=== PATIENT | female | born 1935 | race American Indian/Alaskan Native ===

== ENCOUNTER 2017-09-09 16:22 | Inpatient (IN) | payer MEDICARE, OTHER ==
--- NOTE | 2017-09-09 17:54 | C.PDOC ---
History Of Present Illness <Stephanie Brooke - Last Filed: 09/09/17 18:36> <PurvisKorey Franklin - Last Filed: 09/09/17 22:16> 82 y/o female brought in by family for evaluation of new-onset bilateral leg swelling for the past 4 days. Swelling is described as intermittent, and currently has improved spontaneously compared to 4 days ago. Otherwise patient has no leg pain, and denies taking any diuretics. Denies associated dyspnea on exertion, SOB, or chest pain. Patient has also complained of worsening difficulty walking and bilateral leg weakness for the past 4-5 months. As per family, patient used to walk without assistance. Now she is unable to get up from sitting, and feels as if legs will give out. Denies any paresthesias or pain. Family also notes persistent, foul-smelling urine for 1 month. Urine is unchanged from the past month, with no improvement after taking AZO. Family denies associated fever, frequency, pelvic pain, nausea, or vomiting. Patient tried to see PMD today but was advised to come to the ER. (EdwardoStephanie) History Per: Family History/Exam Limitations: no limitations Onset/Duration Of Symptoms: Days Current Symptoms Are (Timing): Still Present Additional History Per: Patient (poor historian) <Stephanie Brooke - Last Filed: 09/09/17 18:36> <Kroey Purvis - Last Filed: 09/09/17 22:16> Time Seen by Provider: 09/09/17 17:44 Chief Complaint (Nursing): Lower Extremity Problem/Injury Past Medical History Reviewed: Historical Data, Nursing Documentation, Vital Signs - Medical History PMH: Diabetes, HTN, Malignancy (Right breast CA) Other Surgeries: Right breast mastectomy Family History: States: No Known Family Hx - Social History Hx Tobacco Use: No Hx Alcohol Use: No Hx Substance Use: No <Stephanie Brooke - Last Filed: 09/09/17 18:36> Vital Signs: Last Vital Signs Temp 99.5 F 09/09/17 16:39 Pulse 83 09/09/17 16:39 Resp 16 09/09/17 16:39 BP 146/88 09/09/17 16:39 Pulse Ox 96 09/09/17 18:37 - [facility] Procedures BREAST DX PROCEDURE NEC (11/01/03) LOCAL EXCIS BREAST LES (11/01/03) PERCUTAN NEEDLE BIOPSY OF BREAST (09/25/03) Review Of Systems Except As Marked, All Systems Reviewed And Found Negative. Constitutional: Negative for: Fever Cardiovascular: Negative for: Chest Pain Respiratory: Negative for: Shortness of Breath, SOB with Excertion Gastrointestinal: Negative for: Nausea, Vomiting Genitourinary: Positive for: Other (Foul-smelling urine). Negative for: Frequency, Incontinence, Pelvic Pain Musculoskeletal: Positive for: Other (Bilateral leg swelling). Negative for: Leg Pain Neurological: Positive for: Weakness (bilateral legs). Negative for: Numbness ( or paresthesias) <Stephanie Brooke - Last Filed: 09/09/17 18:36> Physical Exam - Physical Exam Appears: Non-toxic, No Acute Distress Skin: Normal Color, Warm, Dry Head: Atraumatic, Normacephalic Eye(s): bilateral: Normal Inspection, PERRL, EOMI Oral Mucosa: Moist Neck: Normal ROM, Supple Chest: Symmetrical Cardiovascular: Rhythm Regular, No Murmur Respiratory: Normal Breath Sounds, No Rales, No Rhonchi, No Wheezing, Other ( NARD) Gastrointestinal/Abdominal: Soft, No Tenderness, No Distention Extremity: Normal ROM, No Tenderness, Capillary Refill (less than 2sec), Swelling (+1 edema to bilateral legs) Pulses: Left Dorsalis Pedis: Normal, Right Dorsalis Pedis: Normal Neurological/Psych: Oriented x3 <Stephanie Brooke Last Filed: 09/09/17 18:36> ED Course And Treatment - Laboratory Results Result Diagrams: 09/09/17 18:14 O2 Sat by Pulse Oximetry: 96 (RA) Pulse Ox Interpretation: Normal <Stephanie Brooke - Last Filed: 09/09/17 18:36> - Laboratory Results Result Diagrams: 09/09/17 18:14 09/09/17 18:14 <Korey Purvis - Last Filed: 09/09/17 22:16> Progress - Data Reviewed Data Reviewed: Lab, Diagnostic imaging, EKG, Old records <Stephanie Brooke - Last Filed: 09/09/17 18:36> <Korey Purvis - Last Filed: 09/09/17 22:16> - Re-Evaluation Re-evaluation Note: 09/09/17 18:07 D/W DR Lashanda GRANADOS AWARE OF ER FINDINGS. CALLBACK W RESULTS FOR DISPO (Stephanie Brooke) Medical Decision Making <Stephanie Brooke - Last Filed: 09/09/17 18:36> <Korey Purvis - Last Filed: 09/09/17 22:16> Medical Decision Making: Impression: 82 year old female with bilateral leg swelling, difficulty walking, foul urine Initial Plan: --EKG --Pro-BNP --CMP --CBC --Chest X-Ray --Blood culture --Urine culture --Urinalysis (Stephanie Brooke) Disposition - Disposition Disposition Time: 19:00 <Stephanie Brooke - Last Filed: 09/09/17 18:36> Discussed With : Ranjeet Granados Doctor Will See Patient In The: Hospital Counseled Patient/Family Regarding: Diagnosis - Disposition Disposition Time: 22:16 - POA Present On Arrival: None <Korey Purvis - Last Filed: 09/09/17 22:16> - Disposition Disposition: HOSPITALIZED Condition: STABLE Forms: [employer] (Irish) - Clinical Impression Clinical Impression: Normal pressure hydrocephalus, Meningioma, Unsteadiness - Scribe Statement The provider has reviewed the documentation as recorded by the Scribe (Rosey Aguila) <Stephanie Brooke - Last Filed: 09/09/17 18:36> <Korey Purvis - Last Filed: 09/09/17 22:16> - Scribe Statement Provider Attestation: All medical record entries made by the Scribe were at my direction and personally dictated by me. I have reviewed the chart and agree that the record accurately reflects my personal performance of the history, physical exam, medical decision making, and the department course for this patient. I have also personally directed, reviewed, and agree with the discharge instructions and disposition. (EdwardoStephanie) Physician Patient Turnover Patient Signed Over To: Korey Purvis Handoff Comments: [facility], BEBA, D/W PMD <Stephanie Brooke - Last Filed: 09/09/17 18:36>
[2017-09-09 18:22] LABS: BASO % 0.2 % (0.0-2.0); EOS % 0.2 % (0.0-4.0); HEMOGLOBIN 16.2 g/dL (11.0-16.0); LYMPH # 1.8 K/uL (1.0-4.3); LYMPH % 19.4 % (20.0-40.0); MEAN CELL VOLUME 85.5 fL (81.0-99.0); MEAN CORPUSCULAR HEMOGLOBIN 28.8 pg (27.0-31.0); MEAN CORPUSCULAR HGB CONC 33.7 g/dL (33.0-37.0); MEAN PLATELET VOLUME 8.2 fL (7.2-11.7); MONO # 0.6 K/uL (0.0-0.8); MONO % 6.1 % (0.0-10.0); NEUT % 74.1 % (50.0-75.0); NRBC % 0.1 % (0.0-2.0); RBC 5.64 Mil/uL (3.80-5.20); RED CELL DISTRIBUTION WIDTH 14.5 % (11.5-14.5); WHITE BLOOD COUNT 9.4 K/uL (4.8-10.8)
[2017-09-09 18:38] LABS: ALB/GLOB RATIO 1.2 (1.0-2.1); ALBUMIN 4.8 g/dL (3.5-5.0); ALT/SGPT 26 U/L (9-52); AST/SGOT 23 U/L (14-36); BLOOD UREA NITROGEN 12 mg/dL (7-17); CALCIUM 11.2 mg/dl (8.6-10.4); GFR AFRICAN-AMERICAN > 60; GFR NON-AFRICAN AMERICAN > 60
[2017-09-09 18:46] LABS: B-TYPE NATRIURETIC PEPTIDE 74.3 pg/mL (0-900)
[2017-09-09] MEDS ORDERED: Sodium Chloride 0.9% 1,000 ML IV ONE (19:51)
[2017-09-09 20:03] LABS: SQUAMOUS EPITHIAL < 1 /hpf (0-5); URINE BACTERIA RARE (<OCC); URINE BILIRUBIN NEGATIVE (NEGATIVE); URINE BLOOD NEGATIVE (NEGATIVE); URINE CLARITY Clear (Clear); URINE COLOR Yellow (YELLOW); URINE GLUCOSE (UA) 3+ mg/dL (Normal); URINE LEUKOCYTE ESTERASE NEG Leu/uL (Negative); URINE PROTEIN NEGATIVE (NEGATIVE); URINE UROBILINOGEN NORMAL mg/dL (0.2-1.0)
--- NOTE | 2017-09-10 08:13 | RAD ---
Date of service: 09/09/2017 PROCEDURE: CHEST RADIOGRAPH, 1 VIEW HISTORY: MED CLEAR COMPARISON: None available. FINDINGS: LUNGS: The lungs are well inflated and clear. PLEURA: No pneumothorax or pleural fluid seen. CARDIOVASCULAR: Normal. OSSEOUS STRUCTURES: No significant abnormalities. VISUALIZED UPPER ABDOMEN: Normal. OTHER FINDINGS: None. IMPRESSION: No active pulmonary disease.
--- NOTE | 2017-09-10 08:45 | CT ---
Date of service: 09/09/2017 PROCEDURE: CT HEAD WITHOUT CONTRAST. HISTORY: unsteadiness/ feels like falling COMPARISON: CT head 05/25/2013 and MRI brain 08/14/2013 TECHNIQUE: Axial computed tomography images were obtained through the head/brain without intravenous contrast. Radiation dose: Total exam DLP = 899.85 mGy-cm. This CT exam was performed using one or more of the following dose reduction techniques: Automated exposure control, adjustment of the mA and/or kV according to patient size, and/or use of iterative reconstruction technique. FINDINGS: HEMORRHAGE: No intracranial hemorrhage. BRAIN: No mass effect or edema. Minimal atrophy. Left parasagittal fall seen meningioma as demonstrated on prior MRI of 08/14/2013 without interval change. This measures approximately 1.3 cm in greatest dimension. There is a component extending along the right parasagittal falx as well which does not enhance on prior MR examination. VENTRICLES: Persistent mild ventriculomegaly disproportionate to the degree of surrounding parenchymal atrophy. 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 Mild to moderate chronic periventricular white matter ischemic change with patchy and confluent deep/ subcortical white matter ischemic change. No change from prior examination. No evidence of acute infarct. CALVARIUM: Unremarkable. PARANASAL SINUSES: Unremarkable as visualized. No significant inflammatory changes. MASTOID AIR CELLS: Unremarkable as visualized. No inflammatory changes. OTHER FINDINGS: None. 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 Chronic white matter ischemic change. No intracranial hemorrhage or evidence of acute infarct. Stable left parasagittal anterior falcine meningioma. The preliminary findings for this examination were reported by [employer] at 9:14 p.m. on 09/09/2017. There is concurrence of this report with the preliminary findings.
[2017-09-10] MEDS: Enoxaparin 40 mg Syringe SC SCH (09:25)
[2017-09-10] MEDS ORDERED: METFORMIN HCL 500 MG PO SCH (10:00)
[2017-09-10 11:51] LABS: BASO % 0.5 % (0.0-2.0); EOS # 0.1 K/uL (0.0-0.7); EOS % 0.6 % (0.0-4.0); HEMOGLOBIN 15.2 g/dL (11.0-16.0); LYMPH % 22.2 % (20.0-40.0); MEAN CELL VOLUME 85.7 fL (81.0-99.0); MEAN CORPUSCULAR HGB CONC 33.9 g/dL (33.0-37.0); MEAN PLATELET VOLUME 8.2 fL (7.2-11.7); MONO # 0.6 K/uL (0.0-0.8); MONO % 6.4 % (0.0-10.0); NEUT # 6.4 K/uL (1.8-7.0); NEUT % 70.3 % (50.0-75.0); NRBC % 0.1 % (0.0-2.0); RBC 5.23 Mil/uL (3.80-5.20); RED CELL DISTRIBUTION WIDTH 14.6 % (11.5-14.5)
[2017-09-10 12:18] LABS: ALB/GLOB RATIO 1.4 (1.0-2.1); ALBUMIN 4.2 g/dL (3.5-5.0); ALT/SGPT 18 U/L (9-52); AST/SGOT 21 U/L (14-36); BLOOD UREA NITROGEN 9 mg/dL (7-17); CALCIUM 10.5 mg/dl (8.6-10.4); GFR AFRICAN-AMERICAN > 60; GFR NON-AFRICAN AMERICAN > 60
--- NOTE | 2017-09-10 16:44 | MRI ---
Date of service: 09/10/2017 PROCEDURE: MRI BRAIN WITHOUT CONTRAST HISTORY: Ataxia COMPARISON: Noncontrast head CT from 09/09/2017 TECHNIQUE: Multiplanar, multisequence MR images of the brain were obtained without intravenous contrast enhancement. FINDINGS: HEMORRHAGE: None DWI: No evidence of an acute or early subacute infarction. BRAIN PARENCHYMA: There are moderate chronic microangiopathic changes. There is no mass, mass effect or abnormal extra-axial fluid collection. There is no territorial infarction. VENTRICLES: There is moderate age-related global parenchymal volume loss with proportionate enlargement of the ventricles and cortical sulci. There is a cavum septum pellucidum. The ventricular dilatation is out of proportion to the sulcal prominence. CRANIUM: There is normal bone marrow signal pattern. ORBITS: Grossly unremarkable. PARANASAL SINUSES/MASTOIDS: Predominantly clear. VASCULAR SYSTEM: There are normal signal voids in the larger intracranial arteries. OTHER FINDINGS: None. IMPRESSION: No acute intracranial abnormality. Moderate chronic microangiopathic changes. Moderate age-related global parenchymal volume loss. Ventricular dilatation is out of prominence to the sulcal prominence for age-related volume loss, normal pressure hydrocephalus is a consideration. Clinical follow-up is advised.
--- NOTE | 2017-09-10 17:11 | CP.PCM.HP ---
History of Present Illness - History of Present Illness History of Present Illness: HPI: Ms. Silviano Álvarez is an 82-year-old [place]ian female who has long-term history of diabetes hypertension, hyperlipidemia. Her adoptive daughter came to the office yesterday requesting antibiotics for her mother because she had developed edema of both lower extremities as well as various foul-smelling urine. They had bought some AZO and thought that it might be a urinary tract infection causing the edema. More importantly Ms. Álvarez's son recently and she had not been herself. Although I suspect that there may be some psychosocial issues in the picture, Ms. Álvarez and he had not been ambulating much over the last 6 to 12 months that I have seen. For you when you and he has also been in the high 9s and 10s. Patient admits to being unsteady on her feet and feels that she is going to fall. Patient has a rolling walker but refuses to use it especially in public. Hence the lower extremities have gotten thinner over time while she put on weight. The patient's sister, in her later years suffered from dementia Alzheimer's type. Patient also seems a lot more forgetful, and together with her behavioral changes may herald the same illness that struck her sister. In the meantime patient is unable to care for herself and with the findings of a meningioma, bereavement and adjustment issues secondary to her son's , some short-term immediate help. Present on Admission - Present on Admission Any Indicators Present on Admission: No History of DVT/PE: No History of Uncontrolled Diabetes: Yes Urinary Catheter: No Decubitus Ulcer Present: No Review of Systems - Review of Systems Systems not reviewed;Unavailable: Altered Mental Status - Constitutional Constitutional: Frequent Falls (not frequent, but had almost fallen) - EENT Eyes: Decreased Night Vision Ears: Decreased Hearing Nose/Mouth/Throat: absent: As Per HPI, Epistaxis, Nasal Congestion, Nasal Discharge, Nasal Obstruction, Nasal Trauma, Nose Pain, Post Nasal Drip, Sinus Pain, Sinus Pressure, Bleeding Gums, Change in Voice, Dental Pain, Dry Mouth, Dysphagia, Halitosis, Hoarsness, Lip Swelling, Mouth Lesions, Mouth Pain, Odynophagia, Sore Throat, Throat Swelling, Tongue Swelling, Facial Pain, Neck Pain, Neck Mass, Other - Breasts Breasts: absent: As Per HPI, Change in Shape, Mass, Pain, Nipple Discharge, Nipple Inversion, Skin Changes, Swelling, Other - Cardiovascular Cardiovascular: absent: As Per HPI, Acrocyanosis, Chest Pain, Chest Pain at Rest , Chest Pain with Activity, Claudication, Diaphoresis, Dyspnea, Dyspnea on Exertion, Edema, Irregular Heart Rhythm, Pain Radiating to Arm/Neck/Jaw, Leg Edema, Leg Ulcers, Lightheadedness, Orthopnea, Palpitations, Paroxysmal Nocturnal Dyspnea, Pedal Edema, Radiating Pain, Rapid Heart Rate, Slow Heart Rate, Syncope, Other - Respiratory Respiratory: Other Additional comments: gets short of breath easily - Gastrointestinal Gastrointestinal: absent: As Per HPI, Abdominal Pain, Belching, Bloating, Change in Bowel Habits, Change in Stool Character, Coffee Ground Emesis, Constipation, Cramping, Diarrhea, Dyspepsia, Dysphagia, Early Satiety, Excessive Flatus, Fecal Incontinence, Heartburn, Hematemesis, Hematochezia, Loose Stools, Melena, Nausea, Odynophagia, Temesmus, Vomiting, Other - Genitourinary Genitourinary: absent: As Per HPI, Change in Urinary Stream, Difficulty Urinating, Dysuria, Flank Pain, Hematuria, Pyuria, Nocturia, Urinary Incontinence, Urinary Frequency, Urinary Hesitance, Urinary Urgency, Voiding Freq/Small Amts, Freq UTI, Hx Renal/Bladder Calculi, Hx /Renal Surgery, Bladder Distension, Other - Reproductive: Female Reproductive:Female: absent: As Per HPI, Amenorrhea, Amenorrhea/ Control, Currently Menstual, Cycle <21 Days, Cycle >35 Days, Cycle Variable, Menses 1-7 Days, Menses >/= 8 Days, Menses Variable, Cycle > 4 Weeks Between, No Menses for 6 Months, Heavy Menses, Light Menses, Normal Menses, Spotting Between Cycles , S/P Hysterectomy, Menopausal, Post Menopausal, Premenarche, Abnormal Vaginal Bleeding, Dysmenorrhea, Dyspareunia, Genital Lesions, Genital Pruritis, Pelvic Pain, Prolapse Symptoms, Sexual Dysfunction, Vaginal Discharge, Vaginal Dryness , Vaginal Odor, Vaginal Pruritis, Other - Menstruation Additional comments: post menopausal - Musculoskeletal Musculoskeletal: Muscle Weakness - Integumentary Integumentary: absent: As Per HPI, Acne, Alopecia, Bleeding Lesions, Change in Hair, Change in Nails, Change in Pigmentation, Changing Lesions, Dry Skin, Erythema, Furuncle, Hirsutism, Lesions, New Lesions, Non-Healing Lesions, Photosensitivity, Pruritus, Rash, Skin Pain, Skin Ulcer, Sores, Striae, Swelling , Unusual Bruising, Wounds, Jaundice, Other - Psychiatric Psychiatric: Difficulty Concentrating, Memory Loss - Endocrine Endocrine: Fatigue, Polydipsia, Polyphagia - Hematologic/Lymphatic Hematologic: absent: As Per HPI, Easy Bleeding, Easy Bruising, Lymphadenopathy, Other Past Patient History - Past Medical History & Family History Past Medical History?: Yes - Past Social History Smoking Status: Unknown If Ever Smoked - CARDIAC Hx Hypertension: Yes - PULMONARY Hx Respiratory Disorders: No - NEUROLOGICAL Hx Neurological Disorder: No - HEENT Hx HEENT Problems: No - RENAL Hx Chronic Kidney Disease: No - ENDOCRINE/METABOLIC Hx Diabetes Mellitus Type 2: Yes - HEMATOLOGICAL/ONCOLOGICAL Hx Cancer: Yes (RIGHT BREAST, MASTECTOMY) - INTEGUMENTARY Hx Dermatological Problems: No - MUSCULOSKELETAL/RHEUMATOLOGICAL Hx Musculoskeletal Disorders: No Hx Falls: No - GASTROINTESTINAL Hx Gastrointestinal Disorders: No - GENITOURINARY/GYNECOLOGICAL Hx Genitourinary Disorders: No - PSYCHIATRIC Hx Psychophysiologic Disorder: No Hx Substance Use: No - SURGICAL HISTORY Hx Surgeries: Yes Hx Mastectomy: Yes (RIGHT) Other/Comment: right mastectomy - ANESTHESIA Hx Anesthesia: Yes Hx Anesthesia Reactions: No Hx Malignant Hyperthermia: No Has any member of the family had a problem w/ anesthesia?: No Meds Home Medications: Home Medication List Medication Instructions Recorded Confirmed Type Docusate [Colace] 100 mg PO TID cap 09/13/17 Rx Enoxaparin [Lovenox] 40 mg SC DAILY syr 09/13/17 Rx GlipiZIDE [Glucotrol] 5 mg PO ACL tab 09/13/17 Rx Lisinopril [Zestril] 10 mg PO DAILY 30 Days #30 tab MDD 09/13/17 Rx 40 Phosphate Enema [Fleet Enema] 135 ml MI ONCE nma 09/13/17 Rx hydroCHLOROthiazide [Microzide] 12.5 mg PO DAILY cap 09/13/17 Rx Allergies/Adverse Reactions: Allergies Allergy/AdvReac Type Severity Reaction Status Date / Time aspirin Allergy Verified 09/09/17 16:43 Physical Exam - Constitutional Appears: No Acute Distress - Head Exam Head Exam: NORMAL INSPECTION, NORMOCEPHALIC - Eye Exam Eye Exam: Normal appearance Pupil Exam: NORMAL ACCOMODATION - ENT Exam ENT Exam: Mucous Membranes Moist, Normal Exam - Neck Exam Neck exam: Positive for: Normal Inspection - Respiratory Exam Respiratory Exam: Decreased Breath Sounds - Cardiovascular Exam Cardiovascular Exam: REGULAR RHYTHM - GI/Abdominal Exam GI & Abdominal Exam: Normal Bowel Sounds - Rectal Exam Rectal Exam: Deferred - Extremities Exam Extremities exam: Positive for: pedal edema - Back Exam Back exam: NORMAL INSPECTION - Psychiatric Exam Psychiatric exam: Flat Affect - Skin Skin Exam: Intact, Normal Color, Warm Results - Vital Signs Recent Vital Signs: Last Vital Signs Temp 98.5 F 09/10/17 15:10 Pulse 83 09/10/17 15:10 Resp 20 09/10/17 15:10 BP 140/88 09/10/17 15:10 Pulse Ox 96 09/10/17 15:10 - Labs Result Diagrams: 09/13/17 07:21 09/13/17 07:21 Labs: Laboratory Results - last 24 hr 09/09/17 09/09/17 09/09/17 18:14 18:14 19:57 WBC 9.4 RBC 5.64 H Hgb 16.2 H Hct 48.2 H MCV 85.5 MCH 28.8 MCHC 33.7 RDW 14.5 Plt Count 315 MPV 8.2 Neut % (Auto) 74.1 Lymph % (Auto) 19.4 L [place] % (Auto) 6.1 Eos % (Auto) 0.2 Baso % (Auto) 0.2 Neut # (Auto) 7.0 Lymph # (Auto) 1.8 [place] # (Auto) 0.6 Eos # (Auto) 0.0 Baso # (Auto) 0.0 Sodium 138 Potassium 4.4 Chloride 99 Carbon Dioxide 27 Anion Gap 15 BUN 12 Creatinine 0.8 Est GFR ( Amer) > 60 Est GFR (Non-Af Amer) > 60 POC Glucose (mg/dL) Random Glucose 276 H Calcium 11.2 H Total Bilirubin 0.5 AST 23 ALT 26 Alkaline Phosphatase 152 H NT-Pro-B Natriuret Pep 74.3 Total Protein 8.7 H Albumin 4.8 Globulin 3.9 Albumin/Globulin Ratio 1.2 Urine Color Yellow Urine Clarity Clear Urine pH 6.0 Ur Specific [place] 1.009 Urine Protein Negative Urine Glucose (UA) 3+ H Urine Ketones Negative Urine Blood Negative Urine Nitrate Negative Urine Bilirubin Negative Urine Urobilinogen Normal Ur Leukocyte Esterase Neg Urine WBC (Auto) 2 Ur Squamous Epith Cells < 1 Urine Bacteria Rare 09/10/17 09/10/17 09/10/17 07:10 11:05 11:46 WBC 9.0 RBC 5.23 H Hgb 15.2 Hct 44.8 MCV 85.7 MCH 29.0 MCHC 33.9 RDW 14.6 H Plt Count 310 MPV 8.2 Neut % (Auto) 70.3 Lymph % (Auto) 22.2 [place] % (Auto) 6.4 Eos % (Auto) 0.6 Baso % (Auto) 0.5 Neut # (Auto) 6.4 Lymph # (Auto) 2.0 [place] # (Auto) 0.6 Eos # (Auto) 0.1 Baso # (Auto) 0.0 Sodium Potassium Chloride Carbon Dioxide Anion Gap BUN Creatinine Est GFR ( Amer) Est GFR (Non-Af Amer) POC Glucose (mg/dL) 214 H 294 H Random Glucose Calcium Total Bilirubin AST ALT Alkaline Phosphatase NT-Pro-B Natriuret Pep Total Protein Albumin Globulin Albumin/Globulin Ratio Urine Color Urine Clarity Urine pH Ur Specific [place] Urine Protein Urine Glucose (UA) Urine Ketones Urine Blood Urine Nitrate Urine Bilirubin Urine Urobilinogen Ur Leukocyte Esterase Urine WBC (Auto) Ur Squamous Epith Cells Urine Bacteria 09/10/17 11:46 WBC RBC Hgb Hct MCV MCH MCHC RDW Plt Count MPV Neut % (Auto) Lymph % (Auto) [place] % (Auto) Eos % (Auto) Baso % (Auto) Neut # (Auto) Lymph # (Auto) [place] # (Auto) Eos # (Auto) Baso # (Auto) Sodium 139 Potassium 4.2 Chloride 101 Carbon Dioxide 23 Anion Gap 19 BUN 9 Creatinine 0.5 L Est GFR ( Amer) > 60 Est GFR (Non-Af Amer) > 60 POC Glucose (mg/dL) Random Glucose 270 H Calcium 10.5 H Total Bilirubin 0.7 AST 21 ALT 18 Alkaline Phosphatase 104 NT-Pro-B Natriuret Pep Total Protein 7.3 Albumin 4.2 Globulin 3.1 Albumin/Globulin Ratio 1.4 Urine Color Urine Clarity Urine pH Ur Specific [place] Urine Protein Urine Glucose (UA) Urine Ketones Urine Blood Urine Nitrate Urine Bilirubin Urine Urobilinogen Ur Leukocyte Esterase Urine WBC (Auto) Ur Squamous Epith Cells Urine Bacteria Assessment & Plan (1) Unsteady gait Assessment and Plan: evaluate for any organic cause, delfino a subacute CVA. start with CT Head Status: Acute (2) UTI (urinary tract infection) Assessment and Plan: repeat UA Status: Acute (3) Intracranial space-occupying lesion Assessment and Plan: meningioma. consult neurology and see if symptomatic and needing treatment Status: Acute (4) Diabetes mellitus Assessment and Plan: uncontrolled and determine cause, unless only uncontrolled eating Status: Acute (5) Hypertension Assessment and Plan: elevated, needs meds adjustment Status: Acute Decision To Admit - Pt Status Changed To: Hospital Disposition Of: Inpatient - Admit Certification Admit to Inpatient:: After my assessment, the patient will require hospitalization for at least two midnights. This is because of the severity of symptoms shown, intensity of services needed, and/or the medical risk in this patient being treated as an outpatient. - InPatient: Physician Admission Certification:: After my assessment, the patient will require hospitalization for at least two midnights. This is because of the severity of symptoms shown, intensity of services needed, and/or the medical risk in this patient being treated as an outpatient. - . Bed Request Type: Telemetry
--- NOTE | 2017-09-10 20:45 | CP.PCM.PN ---
Subjective - Date & Time of Evaluation Date of Evaluation: 09/10/17 Time of Evaluation: 20:44 - Subjective Subjective: Pt in bed and communicates well. Denies any symptoms of hydrocephalus. Explained to pt what it is and associated symptoms.... Objective - Vital Signs/Intake and Output Vital Signs (last 24 hours): Temp Pulse Resp BP Pulse Ox 98.5 F 83 20 140/88 96 09/10/17 15:10 09/10/17 15:10 09/10/17 15:10 09/10/17 15:10 09/10/17 15:10 - Medications Medications: Current Medications Amlodipine Besylate (Norvasc) 5 mg PO DAILY [facility] Last Admin: 09/10/17 09:25 Dose: 5 mg Enoxaparin Sodium (Lovenox) 40 mg SC DAILY [facility] Last Admin: 09/10/17 09:25 Dose: 40 mg Glipizide (Glucotrol) 5 mg PO ACL [facility] Hydrochlorothiazide (Microzide) 12.5 mg PO DAILY [facility] Last Admin: 09/10/17 09:25 Dose: 12.5 mg Lisinopril (Zestril) 10 mg PO DAILY [facility] Metformin HCl (Glucophage Xr) 750 mg PO Q24H [facility] Last Admin: 09/10/17 12:08 Dose: 750 mg - Labs Labs: 09/10/17 11:46 09/10/17 11:46 Assessment and Plan (1) Unsteady gait Status: Acute (2) UTI (urinary tract infection) Status: Acute (3) Intracranial space-occupying lesion Status: Acute (4) Diabetes mellitus Status: Acute (5) Hypertension Status: Acute
--- NOTE | 2017-09-10 23:09 | CON ---
DATE: 09/10/2017 NEUROLOGY CONSULTATION REASON FOR CONSULTATION: Hydrocephalus. HISTORY OF PRESENT ILLNESS: The patient is an 82-year-old female who was brought to the hospital because of bilateral leg weakness over the last 4 days. The patient has been having apparent difficulty with walking over the last few months. As per daughter, there are some days she walks better than the others. The patient denies any focal weakness in the arms or legs. Denies having any headache or dizziness. Denies any chest pain or palpitation. The patient denies having any urinary incontinence. As per daughter, she does have some memory issues. REVIEW OF SYSTEMS: Denies any headache, dizziness, chest pain, shortness of breath, abdominal pain, constipation, diarrhea, dysuria, pyuria, cough, sputum production, hallucinations, and focal weakness in arms or legs. PAST MEDICAL HISTORY: Includes hypertension, diabetes mellitus. MEDICATIONS: At home included amlodipine, metformin, and lisinopril. ALLERGIES: ASPIRIN. SOCIAL HISTORY: The patient is a nonsmoker. Denies the use of any alcohol or illicit drugs. FAMILY HISTORY: Reviewed and noncontributory to the case. PHYSICAL EXAMINATION: GENERAL: The patient is an elderly, pleasant female, sitting, in no acute distress. VITAL SIGNS: Her blood pressure is 144/85, heart rate 74 per minute, breathing at a rate of 16 per minute, and temperature is 98.3 degrees Fahrenheit. HEENT: Head is normocephalic and atraumatic. NECK: Supple. There are no carotid bruits. LUNGS: Clear. CVS: S1 and S2 audible. No murmurs. ABDOMEN: Soft and nontender with bowel sounds present. NEUROLOGIC EXAMINATION: Mental status: The patient is awake and alert, oriented to place and the hospital. She does not remember the year or the month. She knows the name of the president. She follows all simple commands. Cranial nerve examination: Pupils are 3 mm bilaterally, reactive to light. Visual frias are full. Extraocular movements are intact. There is no facial asymmetry. Palate is upgoing bilaterally and tongue is midline. Motor examination: Tone is normal. Power is 5/5 bilaterally in all extremities. Reflexes are 1+ and symmetrical with absent ankle jerks. Plantars downgoing bilaterally. Cerebellar examination: [id number] shows no dysmetria. Gait is wide-based and unsteady. Sensory exam intact to soft touch and pinprick. There is decreased vibration sense in feet. LABORATORY DATA: Labs reviewed. WBC 9.4, hemoglobin 16.2, hematocrit of 48.2, and platelets of 315. Sodium is 138, potassium 4.4, chloride 99, carbon dioxide 27, BUN of 12, creatinine 0.8, and glucose of 276. 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 IMPRESSION: Gait ataxia with memory loss, possible normal pressure hydrocephalus. RECOMMENDATIONS: 1. The patient to have an MRI of the brain without contrast. 2. The patient also to have a neurosurgical evaluation for ventriculoperitoneal shunt placement. 3. The patient to have vitamin B12 level as well as T4 and TSH levels. 4. The patient to have physical therapy for gait imbalance. 5. Please continue other treatments and supportive care. Thank you for the opportunity to participate in the care of this patient. Rashmi Chicas MD
[2017-09-11 06:59] LABS: BASO % 0.3 % (0.0-2.0); EOS % 0.6 % (0.0-4.0); LYMPH # 2.7 K/uL (1.0-4.3); LYMPH % 33.9 % (20.0-40.0); MEAN CELL VOLUME 85.9 fL (81.0-99.0); MEAN CORPUSCULAR HEMOGLOBIN 28.1 pg (27.0-31.0); MEAN CORPUSCULAR HGB CONC 32.7 g/dL (33.0-37.0); MONO # 0.7 K/uL (0.0-0.8); MONO % 8.7 % (0.0-10.0); NEUT # 4.4 K/uL (1.8-7.0); NEUT % 56.5 % (50.0-75.0); RBC 4.99 Mil/uL (3.80-5.20); RED CELL DISTRIBUTION WIDTH 14.4 % (11.5-14.5); WHITE BLOOD COUNT 7.8 K/uL (4.8-10.8)
[2017-09-11 08:01] LABS: ALB/GLOB RATIO 1.2 (1.0-2.1); ALBUMIN 3.6 g/dL (3.5-5.0); ALT/SGPT 26 U/L (9-52); AST/SGOT 29 U/L (14-36); BLOOD UREA NITROGEN 14 mg/dL (7-17); CALCIUM 10.4 mg/dl (8.6-10.4); GFR AFRICAN-AMERICAN > 60; GFR NON-AFRICAN AMERICAN > 60
[2017-09-11 08:10] LABS: HDL CHOLESTEROL 49 mg/dL (30-70)
[2017-09-11 08:20] LABS: LDL CHOLESTEROL 73 mg/dL (0-129)
[2017-09-11] MEDS: Enoxaparin 40 mg Syringe SC SCH (09:52)
[2017-09-11 23:53] VITALS: RESP 20
[2017-09-12 07:31] LABS: BASO # 0.1 K/uL (0.0-0.2); EOS # 0.1 K/uL (0.0-0.7); EOS % 0.6 % (0.0-4.0); HEMOGLOBIN 14.7 g/dL (11.0-16.0); LYMPH # 2.8 K/uL (1.0-4.3); LYMPH % 35.5 % (20.0-40.0); MEAN CELL VOLUME 85.4 fL (81.0-99.0); MEAN CORPUSCULAR HEMOGLOBIN 28.7 pg (27.0-31.0); MEAN CORPUSCULAR HGB CONC 33.6 g/dL (33.0-37.0); MEAN PLATELET VOLUME 8.4 fL (7.2-11.7); MONO # 0.7 K/uL (0.0-0.8); MONO % 8.1 % (0.0-10.0); NEUT # 4.4 K/uL (1.8-7.0); NEUT % 54.8 % (50.0-75.0); NRBC % 0.1 % (0.0-2.0); RBC 5.12 Mil/uL (3.80-5.20); RED CELL DISTRIBUTION WIDTH 14.5 % (11.5-14.5)
[2017-09-12 08:00] LABS: ALB/GLOB RATIO 1.2 (1.0-2.1); ALBUMIN 3.6 g/dL (3.5-5.0); ALT/SGPT 24 U/L (9-52); AST/SGOT 20 U/L (14-36); BLOOD UREA NITROGEN 14 mg/dL (7-17); CALCIUM 10.1 mg/dl (8.6-10.4); GFR AFRICAN-AMERICAN > 60; GFR NON-AFRICAN AMERICAN > 60
[2017-09-12] MEDS: Enoxaparin 40 mg Syringe SC SCH (10:07)
--- NOTE | 2017-09-12 10:32 | CP.PCM.CON ---
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 PT agreeable will speak with Dr Granados and daughter Past Patient History - Past Medical History & Family History Past Medical History?: Yes - Past Social History Smoking Status: Unknown If Ever Smoked - CARDIAC Hx Hypertension: Yes - PULMONARY Hx Respiratory Disorders: No - NEUROLOGICAL Hx Neurological Disorder: No - HEENT Hx HEENT Problems: No - RENAL Hx Chronic Kidney Disease: No - ENDOCRINE/METABOLIC Hx Diabetes Mellitus Type 2: Yes - HEMATOLOGICAL/ONCOLOGICAL Hx Cancer: Yes (RIGHT BREAST, MASTECTOMY) - INTEGUMENTARY Hx Dermatological Problems: No - MUSCULOSKELETAL/RHEUMATOLOGICAL Hx Musculoskeletal Disorders: No Hx Falls: No - GASTROINTESTINAL Hx Gastrointestinal Disorders: No - GENITOURINARY/GYNECOLOGICAL Hx Genitourinary Disorders: No - PSYCHIATRIC Hx Psychophysiologic Disorder: No Hx Substance Use: No - SURGICAL HISTORY Hx Surgeries: Yes Hx Mastectomy: Yes (RIGHT) Other/Comment: right mastectomy - ANESTHESIA Hx Anesthesia: Yes Hx Anesthesia Reactions: No Hx Malignant Hyperthermia: No Has any member of the family had a problem w/ anesthesia?: No Meds Allergies/Adverse Reactions: Allergies Allergy/AdvReac Type Severity Reaction Status Date / Time aspirin Allergy Verified 09/09/17 16:43 - Medications Medications: Current Medications Amlodipine Besylate (Norvasc) 5 mg PO DAILY [facility] Last Admin: 09/12/17 10:07 Dose: 5 mg Enoxaparin Sodium (Lovenox) 40 mg SC DAILY [facility] Last Admin: 09/12/17 10:07 Dose: 40 mg Glipizide (Glucotrol) 5 mg PO ACL [facility] Last Admin: 09/11/17 12:17 Dose: 5 mg Hydrochlorothiazide (Microzide) 12.5 mg PO DAILY [facility] Last Admin: 09/12/17 10:06 Dose: 12.5 mg Lisinopril (Zestril) 10 mg PO DAILY [facility] Last Admin: 09/12/17 10:06 Dose: 10 mg Metformin HCl (Glucophage Xr) 750 mg PO Q24H [facility] Last Admin: 09/11/17 12:17 Dose: 750 mg Results - Vital Signs Recent Vital Signs: Last Vital Signs Temp 98.0 F 09/12/17 08:00 Pulse 83 09/12/17 08:00 Resp 20 09/12/17 08:00 BP 129/75 09/12/17 08:00 Pulse Ox 96 07/29/18 08:00 - Labs Result Diagrams: 09/12/17 07:16 09/12/17 07:16 Labs: Laboratory Results - last 24 hr 09/11/17 09/11/17 09/11/17 06:46 11:06 16:49 WBC RBC Hgb Hct MCV MCH MCHC RDW Plt Count MPV Neut % (Auto) Lymph % (Auto) Reagan % (Auto) Eos % (Auto) Baso % (Auto) Neut # (Auto) Lymph # (Auto) Reagan # (Auto) Eos # (Auto) Baso # (Auto) Sodium Potassium Chloride Carbon Dioxide Anion Gap BUN Creatinine Est GFR ( Amer) Est GFR (Non-Af Amer) POC Glucose (mg/dL) 226 H 224 H Random Glucose Hemoglobin A1c 9.1 H Calcium Total Bilirubin AST ALT Alkaline Phosphatase Total Protein Albumin Globulin Albumin/Globulin Ratio 09/11/17 09/12/17 09/12/17 21:32 07:16 07:16 WBC 8.0 RBC 5.12 Hgb 14.7 Hct 43.8 MCV 85.4 MCH 28.7 MCHC 33.6 RDW 14.5 Plt Count 290 MPV 8.4 Neut % (Auto) 54.8 Lymph % (Auto) 35.5 Reagan % (Auto) 8.1 Eos % (Auto) 0.6 Baso % (Auto) 1.0 Neut # (Auto) 4.4 Lymph # (Auto) 2.8 Reagan # (Auto) 0.7 Eos # (Auto) 0.1 Baso # (Auto) 0.1 Sodium 139 Potassium 3.7 Chloride 103 Carbon Dioxide 26 Anion Gap 14 BUN 14 Creatinine 0.6 L Est GFR ( Amer) > 60 Est GFR (Non-Af Amer) > 60 POC Glucose (mg/dL) 223 H Random Glucose 188 H Hemoglobin A1c Calcium 10.1 Total Bilirubin 0.6 AST 20 ALT 24 Alkaline Phosphatase 90 Total Protein 6.6 Albumin 3.6 Globulin 3.0 Albumin/Globulin Ratio 1.2 09/12/17 07:33 WBC RBC Hgb Hct MCV MCH MCHC RDW Plt Count MPV Neut % (Auto) Lymph % (Auto) Reagan % (Auto) Eos % (Auto) Baso % (Auto) Neut # (Auto) Lymph # (Auto) Reagan # (Auto) Eos # (Auto) Baso # (Auto) Sodium Potassium Chloride Carbon Dioxide Anion Gap BUN Creatinine Est GFR ( Amer) Est GFR (Non-Af Amer) POC Glucose (mg/dL) 186 H Random Glucose Hemoglobin A1c Calcium Total Bilirubin AST ALT Alkaline Phosphatase Total Protein Albumin Globulin Albumin/Globulin Ratio
[2017-09-12 14:03] LABS: INR 1.1; PROTHROMBIN TIME 12.1 SECONDS (9.7-12.2)
[2017-09-13 07:42] LABS: ALB/GLOB RATIO 1.3 (1.0-2.1); ALBUMIN 3.8 g/dL (3.5-5.0); ALT/SGPT 22 U/L (9-52); AST/SGOT 30 U/L (14-36); BLOOD UREA NITROGEN 14 mg/dL (7-17); CALCIUM 10.2 mg/dl (8.6-10.4); GFR AFRICAN-AMERICAN > 60; GFR NON-AFRICAN AMERICAN > 60; URIC ACID 5.5 mg/dL (2.2-7.5)
[2017-09-13 07:47] LABS: BASO % 0.2 % (0.0-2.0); EOS # 0.1 K/uL (0.0-0.7); EOS % 1.2 % (0.0-4.0); HEMOGLOBIN 14.1 g/dL (11.0-16.0); LYMPH # 2.4 K/uL (1.0-4.3); LYMPH % 31.4 % (20.0-40.0); MEAN CORPUSCULAR HEMOGLOBIN 28.7 pg (27.0-31.0); MEAN CORPUSCULAR HGB CONC 33.4 g/dL (33.0-37.0); MEAN PLATELET VOLUME 8.2 fL (7.2-11.7); MONO # 0.7 K/uL (0.0-0.8); MONO % 8.8 % (0.0-10.0); NEUT # 4.4 K/uL (1.8-7.0); NEUT % 58.4 % (50.0-75.0); NRBC % 0.1 % (0.0-2.0); RBC 4.92 Mil/uL (3.80-5.20); RED CELL DISTRIBUTION WIDTH 14.2 % (11.5-14.5); WHITE BLOOD COUNT 7.6 K/uL (4.8-10.8)
--- NOTE | 2017-09-13 09:40 | RAD ---
Date of service: 09/13/2017 PROCEDURE: Bilateral Feet Radiographs. HISTORY: positive intermittent swelling, t/c OA COMPARISON: None. FINDINGS: Examination grossly technically limited. Cannot exclude subtle nondisplaced fracture on the basis of this examination. BONES: Right Foot: Normal. No fracture. Small plantar calcaneal spur. Left Foot: Normal. No fracture. Small plantar calcaneal spur. JOINTS: Right Foot: Normal. No osteoarthritis. Left Foot: Normal. No osteoarthritis. SOFT TISSUES: Right Foot: Normal. Left Foot: Normal. OTHER FINDINGS: None. IMPRESSION: No acute fracture. Technically limited examination.
[2017-09-13] MEDS: Enoxaparin 40 mg Syringe SC SCH (10:16)
--- NOTE | 2017-09-13 11:20 | CON ---
DATE: 09/11/2017 HISTORY OF PRESENT ILLNESS: This is an 82-year-old lady who has been noted to have progressive gait worsening over the past 6 to 12 months. This was apparently noticed by her daughter who brought her in. She also admitted to herself with significant balance dysfunction. She has really become on a walker although apparently has been reluctant to use it. When questioned, she also admits to cognitive and memory dysfunction as well as urinary incontinence. She states that frequently she will recognize she has to go to the bathroom but will ooze the urine before making it there. PAST MEDICAL HISTORY: Otherwise, significant for diabetes and hypertension. The rest of her PMH, medication, allergies, social history reviewed in the EMR. PHYSICAL EXAMINATION: GENERAL: The patient is awake and alert. She is quite pleasant, interactive and responsive. She is only oriented towards her name. She can correctly identify all objects presented. and insight are very poor. She does follow all commands. HEENT: Pupils are equally reactive. EOMs are full. Face is symmetric. NEUROLOGIC: Cranial nerves intact. She has 5/5 strength throughout. Sensory exam is grossly intact. Her gait was not tested. LABORATORY DATA: CT and MRI of the brain show significant ventriculomegaly out of proportion to her atrophy. There is profound transependymal edema surrounding the lateral horns. Apparently, there were some question of a small falcine meningioma which is either not visible or infinitesimal, certainly not of any significance. The patient absolutely fits the classical pattern of normal pressure hydrocephalus, having the triad of memory and cognitive disturbance with gait and balance dysfunction as well as urinary incontinence. CT and MRI are quite consistent. I would certainly advocate placement of ventriculoperitoneal shunt. I have discussed with the patient who is in agreement. 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 Jason Barron MD
--- NOTE | 2017-09-13 18:09 | CP.PCM.PN ---
Subjective - Date & Time of Evaluation Date of Evaluation: 09/13/17 Time of Evaluation: 18:05 - Subjective Subjective: Pt doing well and had been participating in PT exercises. Had reviewed pt's MRI with finding of NPH. Appreciated Neurology and Neurosurgery consults. > Per daughter, pt's leg swelling had decreased overnight and pt able to ambulate much more than she used to. Had discussed end-of-life issues with pt and she had never wanted anything aggressive done should the time come. In the meantime, pt is improving with prodding from staff and family. Objective - Vital Signs/Intake and Output Vital Signs (last 24 hours): Temp Pulse Resp BP Pulse Ox 98.1 F 74 20 105/72 98 09/13/17 16:00 09/13/17 16:00 09/13/17 16:00 09/13/17 16:00 09/13/17 16:00 Intake and Output: 09/13/17 09/13/17 06:59 18:59 Intake Total 150 480 Balance 150 480 - Medications Medications: Current Medications Amlodipine Besylate (Norvasc) 5 mg PO DAILY [facility] Last Admin: 09/13/17 10:16 Dose: 5 mg Enoxaparin Sodium (Lovenox) 40 mg SC DAILY [facility] Last Admin: 09/13/17 10:16 Dose: 40 mg Glipizide (Glucotrol) 5 mg PO ACL [facility] Last Admin: 09/13/17 12:07 Dose: 5 mg Hydrochlorothiazide (Microzide) 12.5 mg PO DAILY [facility] Last Admin: 09/13/17 10:16 Dose: 12.5 mg Lisinopril (Zestril) 10 mg PO DAILY [facility] Last Admin: 09/13/17 10:16 Dose: 10 mg Metformin HCl (Glucophage Xr) 750 mg PO Q24H [facility] Last Admin: 09/13/17 12:07 Dose: 750 mg - Labs Labs: 09/13/17 07:21 09/13/17 07:21 PT 12.1 SECONDS (9.7-12.2) 09/12/17 13:50 INR 1.1 09/12/17 13:50 APTT 40 SECONDS (21-34) H 09/12/17 13:50 Assessment and Plan (1) Unsteady gait Assessment & Plan: legs atrophic though able to carry her weight Status: Acute (2) UTI (urinary tract infection) Assessment & Plan: pt asymptomatic Status: Acute (3) Diabetes mellitus Assessment & Plan: will adjust pt's medication to optimize therapy Status: Acute (4) Intracranial space-occupying lesion Assessment & Plan: incidental finding of meningioma. asymptomatic, no urgent need for excision Status: Acute (5) Hypertension Assessment & Plan: pt's BP at goal Status: Acute
--- NOTE | 2017-09-13 18:40 | CP.PCM.PN ---
Subjective - Date & Time of Evaluation Date of Evaluation: 09/12/17 Time of Evaluation: 21:00 - Subjective Subjective: Noted consultation report from Neurosurgery and plans for placement of a ventriculo-peritoneal shunt. For as long as iI've known this patient, she has always been a little reticent about surgeries of any sort. I double checked and informed pt about the plans of neurosurgery to place a SERVICES MGR shunt under her skin, because pt was unaware of how the procedure would go. Objective - Vital Signs/Intake and Output Vital Signs (last 24 hours): Temp Pulse Resp BP Pulse Ox 98.1 F 74 20 105/72 98 09/13/17 16:00 09/13/17 16:00 09/13/17 16:00 09/13/17 16:00 09/13/17 16:00 Intake and Output: 09/13/17 09/13/17 06:59 18:59 Intake Total 150 480 Balance 150 480 - Medications Medications: Current Medications Amlodipine Besylate (Norvasc) 5 mg PO DAILY [facility] Last Admin: 09/13/17 10:16 Dose: 5 mg Enoxaparin Sodium (Lovenox) 40 mg SC DAILY [facility] Last Admin: 09/13/17 10:16 Dose: 40 mg Glipizide (Glucotrol) 5 mg PO ACL [facility] Last Admin: 09/13/17 12:07 Dose: 5 mg Hydrochlorothiazide (Microzide) 12.5 mg PO DAILY [facility] Last Admin: 09/13/17 10:16 Dose: 12.5 mg Lisinopril (Zestril) 10 mg PO DAILY [facility] Last Admin: 09/13/17 10:16 Dose: 10 mg Metformin HCl (Glucophage Xr) 750 mg PO Q24H [facility] Last Admin: 09/13/17 12:07 Dose: 750 mg - Labs Labs: 09/13/17 07:21 09/13/17 07:21 PT 12.1 SECONDS (9.7-12.2) 09/12/17 13:50 INR 1.1 09/12/17 13:50 APTT 40 SECONDS (21-34) H 09/12/17 13:50 Assessment and Plan (1) Unsteady gait Status: Acute (2) UTI (urinary tract infection) Status: Acute (3) Diabetes mellitus Status: Acute (4) Intracranial space-occupying lesion Status: Acute (5) Hypertension Status: Acute
--- NOTE | 2017-09-13 18:57 | CP.PCM.PN ---
Subjective - Date & Time of Evaluation Date of Evaluation: 09/13/17 Time of Evaluation: 18:45 - Subjective Subjective: With family at bedside, discussed plans by Surgery of putting in a ventriculo- peritoneal shunt in her.. Pt said she will do whatever i recommend and I also informed her that should she decide to do it, I will be there for her. Pt expressed gratitude and happiness. > Pt and one of her daughters was at bedside when we had discussion of her possible procedure. Pt did not remember the discussion, but is very firm on what she is willing to undergo. Definitely does not want any aggressive interventions. She had been asymptomatic all this time and also agrees that she needs to be have strengthening exercises and will go to [facility] when ready. Objective - Vital Signs/Intake and Output Vital Signs (last 24 hours): Temp Pulse Resp BP Pulse Ox 98.1 F 74 20 105/72 98 09/13/17 16:00 09/13/17 16:00 09/13/17 16:00 09/13/17 16:00 09/13/17 16:00 Intake and Output: 09/13/17 09/13/17 06:59 18:59 Intake Total 150 480 Balance 150 480 - Medications Medications: Current Medications Docusate Sodium (Colace) 100 mg PO TID [facility] Enoxaparin Sodium (Lovenox) 40 mg SC DAILY [facility] Last Admin: 09/13/17 10:16 Dose: 40 mg Glipizide (Glucotrol) 5 mg PO ACL [facility] Last Admin: 09/13/17 12:07 Dose: 5 mg Hydrochlorothiazide (Microzide) 12.5 mg PO DAILY [facility] Last Admin: 09/13/17 10:16 Dose: 12.5 mg Lisinopril (Zestril) 10 mg PO DAILY [facility] Last Admin: 09/13/17 10:16 Dose: 10 mg Metformin HCl (Glucophage Xr) 750 mg PO Q24H [facility] Last Admin: 09/13/17 12:07 Dose: 750 mg Sodium Phosphate (Fleet Enema) 135 ml MN ONCE STA Stop: 09/13/17 18:41 - Labs Labs: 09/13/17 07:21 09/13/17 07:21 PT 12.1 SECONDS (9.7-12.2) 09/12/17 13:50 INR 1.1 09/12/17 13:50 APTT 40 SECONDS (21-34) H 09/12/17 13:50 - Constitutional Appears: No Acute Distress - Head Exam Head Exam: NORMAL INSPECTION - Eye Exam Eye Exam: Normal appearance - ENT Exam ENT Exam: Mucous Membranes Moist, Normal Exam - Neck Exam Neck Exam: Normal Inspection - Respiratory Exam Respiratory Exam: Clear to Ausculation Bilateral, NORMAL BREATHING PATTERN - Cardiovascular Exam Cardiovascular Exam: REGULAR RHYTHM - GI/Abdominal Exam GI & Abdominal Exam: Normal Bowel Sounds - Rectal Exam Rectal Exam: Deferred, NORMAL INSPECTION - Neurological Exam Neurological Exam: Alert, Awake, CN II-XII Intact, Oriented x3 Neuro motor strength exam: Left Upper Extremity: 3, Right Upper Extremity: 3, Left Lower Extremity: 3, Right Lower Extremity: 3 - Psychiatric Exam Psychiatric exam: Normal Affect, Normal Mood - Skin Skin Exam: Dry, Normal Color, Warm Assessment and Plan (1) Unsteady gait Assessment & Plan: needs rehab to steady gait and be able to perform ADLs, delfino toileting Status: Acute (2) UTI (urinary tract infection) Assessment & Plan: improved, no frequency, no incontinence Status: Acute (3) Diabetes mellitus Assessment & Plan: low carb diet with low fat Status: Acute (4) Intracranial space-occupying lesion Assessment & Plan: meningioma + normal pressure hydrocephalus: no major interventions at this time. Status: Acute (5) Hypertension Assessment & Plan: stable Status: Acute
--- NOTE | 2017-09-13 22:58 | PN ---
DATE: 09/13/2017 NEUROLOGY PROGRESS NOTE SUBJECTIVE: The patient is sitting in the chair, in no acute distress. Denies having any headache or dizziness. PHYSICAL EXAMINATION: VITAL SIGNS: Her blood pressure is 105/72, heart rate is 74 per minute, breathing at a rate of 16 per minute, and temperature is 98.1 degree Fahrenheit. HEENT: Head is normocephalic and atraumatic. NECK: Supple. There are no carotid bruits. LUNGS: Clear. CARDIOVASCULAR: S1 and S2 audible. No murmurs. ABDOMEN: Soft, nontender. Bowel sounds are present. NEUROLOGIC: Mental Status: The patient is awake, alert, and oriented to place and the hospital, year is 1919, month is August. She knows the name of the president. Follows all simple commands. Cranial nerve examination: Pupils are 3 mm bilaterally, reactive to light. Visual frias are full. Extraocular movements are intact. There is no facial asymmetry. Tongue is midline. Motor examination: Tone is normal. Power is 5/5 bilaterally in all extremities. [id number] shows no dysmetria. Gait is wide-based and unsteady. LABORATORY DATA: Labs reviewed. The patient had an MRI of the brain which showed no acute intracranial abnormality. Ventricular dilatation consistent with possible normal pressure hydrocephalus. IMPRESSION: 1. Gait ataxia with memory loss. 2. Possible normal pressure hydrocephalus. RECOMMENDATIONS: 1. The patient and her daughter apparently does not want to have a ventriculoperitoneal shunt placement. 2. The patient to continue to have physical therapy for gait imbalance. 3. The patient to have vitamin B12 levels done. 4. Please continue supportive care and the treatment. Thank you for the opportunity to participate in the care of this patient. Rashmi Chicas MD
[2017-09-13 23:24] VITALS: BP 129/83; PULSE 75; TEMP 98.3; O2SAT 100
--- NOTE | 2017-09-14 14:10 | CARD ---
APPROVED REPORT Date of service: 09/13/2017 EKG Measurement Heart [id number] ID [id number] <Conclusion> Sinus rhythm with 1st degree AV block Left anterior fascicular block Moderate voltage criteria for LVH, may be normal variant Possible Lateral infarct, age undetermined Abnormal ECG
--- NOTE | 2017-09-22 08:32 | CP.PCM.DIS ---
Provider - Provider Date of Admission: 09/09/17 22:16 Attending physician: Ranjeet Granados MD Primary care physician: Dr. Ranjeet Granados Consults: Neurology: Dr. Rashmi Chicas Neurosurgery: Jason Rivas Time Spent in preparation of Discharge (in minutes): 30 Diagnosis - Discharge Diagnosis (1) Unsteady gait Status: Acute (2) UTI (urinary tract infection) Status: Acute (3) Diabetes mellitus Status: Acute (4) Intracranial space-occupying lesion Status: Acute (5) Hypertension Status: Acute Hospital Course - Lab Results Lab Results: Micro Results 09/09/17 19:35 Blood Blood Culture - Final NO GROWTH AFTER 5 DAYS 09/09/17 19:35 Blood Gram Stain - Final TEST NOT PERFORMED 09/09/17 19:35 Blood Blood Culture - Final NO GROWTH AFTER 5 DAYS 09/09/17 19:35 Blood Gram Stain - Final TEST NOT PERFORMED 09/09/17 19:57 Urine Urine Culture - Final No Growth (<1,000 CFU/ML) Most Recent Lab Values WBC 7.6 K/uL (4.8-10.8) 09/13/17 07:21 RBC 4.92 Mil/uL (3.80-5.20) 09/13/17 07:21 Hgb 14.1 g/dL (11.0-16.0) 09/13/17 07:21 Hct 42.3 % (34.0-47.0) 09/13/17 07:21 MCV 86.0 fL (81.0-99.0) 09/13/17 07:21 MCH 28.7 pg (27.0-31.0) 09/13/17 07:21 MCHC 33.4 g/dL (33.0-37.0) 09/13/17 07:21 RDW 14.2 % (11.5-14.5) 09/13/17 07:21 Plt Count 314 K/uL (130-400) 09/13/17 07:21 MPV 8.2 fL (7.2-11.7) 09/13/17 07:21 Neut % (Auto) 58.4 % (50.0-75.0) 09/13/17 07:21 Lymph % (Auto) 31.4 % (20.0-40.0) 09/13/17 07:21 [place] % (Auto) 8.8 % (0.0-10.0) 09/13/17 07:21 Eos % (Auto) 1.2 % (0.0-4.0) 09/13/17 07:21 Baso % (Auto) 0.2 % (0.0-2.0) 09/13/17 07:21 Neut # (Auto) 4.4 K/uL (1.8-7.0) 09/13/17 07:21 Lymph # (Auto) 2.4 K/uL (1.0-4.3) 09/13/17 07:21 Garden # (Auto) 0.7 K/uL (0.0-0.8) 09/13/17 07:21 Eos # (Auto) 0.1 K/uL (0.0-0.7) 09/13/17 07:21 Baso # (Auto) 0.0 K/uL (0.0-0.2) 09/13/17 07:21 PT 12.1 SECONDS (9.7-12.2) 09/12/17 13:50 INR 1.1 09/12/17 13:50 APTT 40 SECONDS (21-34) H 09/12/17 13:50 Sodium 139 mmol/L (132-148) 09/13/17 07:21 Potassium 3.7 mmol/L (3.6-5.2) 09/13/17 07:21 Chloride 102 mmol/L (98-107) 09/13/17 07:21 Carbon Dioxide 24 mmol/L (22-30) 09/13/17 07:21 Anion Gap 16 (10-20) 09/13/17 07:21 BUN 14 mg/dL (7-17) 09/13/17 07:21 Creatinine 0.6 mg/dL (0.7-1.2) L 09/13/17 07:21 Est GFR ( Amer) > 60 09/13/17 07:21 Est GFR (Non-Af Amer) > 60 09/13/17 07:21 POC Glucose (mg/dL) 187 mg/dL (65-110) H 09/13/17 21:09 Random Glucose 197 mg/dL (65-105) H 09/13/17 07:21 Hemoglobin A1c 9.0 % (4.2-6.5) H 09/13/17 07:21 Uric Acid 5.5 mg/dL (2.2-7.5) 09/13/17 07:21 Calcium 10.2 mg/dl (8.6-10.4) 09/13/17 07:21 Total Bilirubin 0.6 mg/dL (0.2-1.3) 09/13/17 07:21 AST 30 U/L (14-36) 09/13/17 07:21 ALT 22 U/L (9-52) 09/13/17 07:21 Alkaline Phosphatase 92 U/L (38-126) 09/13/17 07:21 NT-Pro-B Natriuret Pep 74.3 pg/mL (0-900) 09/09/17 18:14 Total Protein 6.7 g/dL (6.3-8.3) 09/13/17 07:21 Albumin 3.8 g/dL (3.5-5.0) 09/13/17 07:21 Globulin 2.9 gm/dL (2.2-3.9) 09/13/17 07:21 Albumin/Globulin Ratio 1.3 (1.0-2.1) 09/13/17 07:21 Triglycerides 113 mg/dL (0-149) 09/11/17 06:46 Cholesterol 151 mg/dL (0-199) 09/11/17 06:46 LDL Cholesterol Direct 73 mg/dL (0-129) 09/11/17 06:46 HDL Cholesterol 49 mg/dL (30-70) 09/11/17 06:46 Vitamin B12 553 pg/mL (239-931) 09/13/17 07:21 Urine Color Yellow (YELLOW) 09/09/17 19:57 Urine Clarity Clear (Clear) 09/09/17 19:57 Urine pH 6.0 (5.0-8.0) 09/09/17 19:57 Ur Specific [place] 1.009 (1.003-1.030) 09/09/17 19:57 Urine Protein Negative mg/dL (NEGATIVE) 09/09/17 19:57 Urine Glucose (UA) 3+ mg/dL (Normal) H 09/09/17 19:57 Urine Ketones Negative mg/dL (NEGATIVE) 09/09/17 19:57 Urine Blood Negative (NEGATIVE) 09/09/17 19:57 Urine Nitrate Negative (NEGATIVE) 09/09/17 19:57 Urine Bilirubin Negative (NEGATIVE) 09/09/17 19:57 Urine Urobilinogen Normal mg/dL (0.2-1.0) 09/09/17 19:57 Ur Leukocyte Esterase Neg William/uL (Negative) 09/09/17 19:57 Urine WBC (Auto) 2 /hpf (0-5) 09/09/17 19:57 Ur Squamous Epith Cells < 1 /hpf (0-5) 09/09/17 19:57 Urine Bacteria Rare (<OCC) 09/09/17 19:57 Ur Random Creatinine 94 mg/dL (20-320) 09/13/17 09:08 Urine Total Volume 0.3 mg/dL 09/13/17 09:08 Microalb/Creat Ratio 3 (<30) 09/13/17 09:08 Blood Type B POSITIVE 09/13/17 16:41 Antibody Screen Negative 09/13/17 16:41 - Hospital Course Hospital Course: Ms. Silviano Álvarez is an 82-year-old [place] female who has long-term history of diabetes hypertension, hyperlipidemia. Her adoptive daughter came to the office informing me of changes in Ms. Álvarez's behavior, as well as the presence of foul-smelling urine. Because of the very real danger of renal failure should an ascending pyelonephritis may cause, I requested that pt proceed to this facility's ER for evaluation. Pt was noted by ER personnel to be unsteady in gait, and CT scan showed that pt may have hydrocephalus despite normal pressures. Neurology consult sought and obtained, from which a neurosurgery consult was requested resulting in a plan for installing a VPS shunt. I advised pt of this plan, and which, from previous discussions I have had with the pt, I knew she would refuse. She did agree to go to [facility] for further strengthening and balance training, and she was discharged to [facility] after her tests were completed. Discharge Exam - Head Exam Head Exam: NORMAL INSPECTION - Eye Exam Eye Exam: Normal appearance Pupil Exam: NORMAL ACCOMODATION - ENT Exam ENT Exam: Normal Exam - Neck Exam Neck exam: Normal Inspection - Respiratory Exam Respiratory Exam: Clear to PA & Lateral, NORMAL BREATHING PATTERN - Cardiovascular Exam Cardiovascular Exam: REGULAR RHYTHM - GI/Abdominal Exam GI & Abdominal Exam: Normal Bowel Sounds - Rectal Exam Rectal Exam: Deferred - Back Exam Back exam: NORMAL INSPECTION - Neurological Exam Neurological exam: Abnormal Gait, Alert, CN II-XII Intact, Oriented x3, Reflexes Normal - Psychiatric Exam Psychiatric exam: Normal Affect, Normal Mood - Skin Skin Exam: Dry, Intact, Normal Color, Warm Discharge Plan - Follow Up Plan Condition: STABLE Disposition: REHAB FACILITY/REHAB UNIT Patient education suggested?: Yes Instructions: Diabetes Exchange Diet, Hydrocephalus (DC), Meningioma (DC), Diabetic Meal Planning , Urinary Tract Infection in Women (DC), Weakness (GEN) Additional Instructions: 1. pls admit pt under Dr. Lizzy Granados 2. Pls call Dr. Granados to verify meds 3. Diet shall be only 20% carbs, 40% veggies, 40% protein as an ADA diet 4. add ammonium lactate lotion to meds list 5. lisinopril = 10 mg po daily, hold for SBP < 110 metformin ER 850 mg 1 tab po daily with meals fireworks = per families glimepiride = 4 mg po daily rosuvastatin = 10 mg po daily Referrals: Ranjeet Granados MD [Staff Provider] - Clinical Quality Measures - CQM - Stroke Contranindication/Reason for not providing: Risk for Falling Anticoagulation Prescribed for Atrial Flutter, Atrial Fibrillation and History of:: Not Applicable Contranindication/Reason for not providing: Risk for Falling Statin prescribed: Yes - CQM - VTE Did patient receive overlap therapy during hosptialization?: Yes If yes, what was given to the patient?: Lovenox Is patient being discharged on overlap therapy?: No - CQM - Heart Failure Ejection Fraction: 40 % or Greater Left Ventricular Function to be assessed after discharge: No AILYN Inhibitor Prescribed: No Contraindication/Reason for not providing: ARB prescribed Contraindication/Reason for not providing: no heart failure Hydralazine Nitrate Prescribed: No Contraindication/Reason for not providing: no indication Implantable Cardioverter Defibrillator Therapy: No Contraindication/Reason for not providing: no indication Cardiac Resynchronization Therapy Prescribed: No Contraindication/Reason for not providing: no inddication Will be discharged to: [facility] Facility - Date & Time of Discharge Summary Date of Discharge Summary: 09/22/17 Time of Discharge Summary: 12:43
== END 2017-09-14 00:30 | DRG 690 ==
LOC: C.ER 16:22 → C.9E 22:16 → C.3T 23:08
PROVIDERS: ADMIT Family Medicine; ATTEND Family Medicine
DX: N39.0 Urinary tract infection, site not specified (principal); G91.2 (Idiopathic) normal pressure hydrocephalus; R41.3 Other amnesia; E11.9 Type 2 diabetes mellitus without complications; E78.5 Hyperlipidemia, unspecified; I10 Essential (primary) hypertension; Z85.3 Personal history of malignant neoplasm of breast; D32.9 Benign neoplasm of meninges, unspecified; R90.0 Intracranial space-occupying lesion found on diagnostic imaging of central nervous system; R26.81 Unsteadiness on feet